=== PATIENT | male | born 1975 | race Caucasian/White ===

== ENCOUNTER 2020-10-01 16:45 | Emergency (ER) | payer OTHER ==
[2020-10-01 16:55] VITALS: BP 143/79; PULSE 89
[2020-10-01 17:18] LABS: CHLORIDE,CL 98 mEq/L (98-106); SODIUM,NA 133 mEq/L (136-145)
[2020-10-01] MEDS ORDERED: Codeine/Promethazine 10-6.25 MG/5 ML Syrup 5 ML UD Cup PO PRN (17:49)
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
[2020-10-01] MEDS ORDERED: Magnesium Chloride 64 MG Tab.ER PO STA (17:52)
[2020-10-01] MEDS ORDERED: Potassium Chloride 10 MEQ Tab.ER PO ONE (17:52)
== END 2020-10-01 18:14 | disposition home or self-care (01) ==
LOC: CC.ED 16:45
DX: U07.1 COVID-19 (principal); K21.9 Gastro-esophageal reflux disease without esophagitis; F41.9 Anxiety disorder, unspecified; F32.9 Major depressive disorder, single episode, unspecified; E11.9 Type 2 diabetes mellitus without complications; E03.9 Hypothyroidism, unspecified; E66.9 Obesity, unspecified; Z68.41 Body mass index [BMI] 40.0-44.9, adult; Z79.899 Other long term (current) drug therapy
CPT/HCPCS: 36415; 71046; 80053; 83605; 83735; 85025; 85379; 86140; 99284; 99285; A9270

== ENCOUNTER 2020-10-03 19:45 | Inpatient (IN) | payer OTHER ==
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
[2020-10-03 20:26] LABS: CHLORIDE,CL 95 mEq/L (98-106); SODIUM,NA 130 mEq/L (136-145)
[2020-10-03 20:37] LABS: PTT,PARTIAL THROMBOPLSTIN TIME 27.9 SEC (23.2-32.3)
[2020-10-03] MEDS ORDERED: Ondansetron 4 MG Tab.DIS PO PRN (21:27)
[2020-10-03] MEDS ORDERED: NS + KCl 20mEq/L 1,000 ML IV SCH (21:27)
[2020-10-03] MEDS ORDERED: Sodium Chloride 0.9% 10 ML Syringe FLUSH PRN (21:27)
[2020-10-03] MEDS ORDERED: REMDESIVIR 200 MG in Sodium Chloride 0.9% 250 ML IV ONE (21:27)
[2020-10-03] MEDS ORDERED: Ondansetron 4 MG/2 ML SDV IV PRN (21:27)
[2020-10-03] MEDS: metFORMIN 500 MG Tab PO SCH (22:48)
[2020-10-03] MEDS: Dexamethasone 4 MG Tab PO SCH (22:48)
[2020-10-03] MEDS: Enoxaparin 40 MG/0.4 ML Syringe SUBCUT SCH (22:48)
[2020-10-03] MEDS: busPIRone 5 MG Tab PO SCH (22:49)
[2020-10-04] MEDS ORDERED: Cholecalciferol (Vitamin D3) 25 MCG Tab PO SCH (08:00)
[2020-10-04] MEDS: busPIRone 5 MG Tab PO SCH ×2 (08:42→19:41)
[2020-10-04] MEDS: Zinc Sulfate 220 MG Cap PO SCH (08:43)
[2020-10-04] MEDS: metFORMIN 500 MG Tab PO SCH ×2 (08:43→19:42)
[2020-10-04] MEDS: Dexamethasone 4 MG Tab PO SCH (08:43)
[2020-10-04] MEDS: Pantoprazole 40 MG Tab.CR PO SCH (08:43)
[2020-10-04] MEDS: Levothyroxine 112 MCG Tab PO SCH (08:43)
[2020-10-04] MEDS: Gabapentin 100 MG Cap PO SCH ×3 (08:44→15:31)
[2020-10-04] MEDS: Ascorbic Acid 500 MG Tab PO SCH ×2 (08:44→19:42)
[2020-10-04] MEDS: VARENICLINE 1 MG PO SCH ×2 (08:44→19:42)
--- NOTE | 2020-10-04 10:21 | PCM.PN ---
- General Info Date of Service: 10/04/20 Admission Dx/Problem (Free Text): COvid Pneumonitis with Hypoxia Subjective Update: Sharif is a 45 yo male who was admitted to the hospital from the ED yesterday with bilateral covid pneumonitis with hypoxia. He reports he gets very easily winded. Was attempting to shower at time of rounds and reports he struggled with that. Has no stamina. Has continued dry cough. Reports chest pain while coughing. Has had some diarrhea. O2 sats have been maintaining with 3L via NC. No other complaints. Functional Status: Reports: Pain Controlled, Tolerating Diet - Review of Systems General: Reports: Weakness, Fatigue, Malaise. Denies: Fever HEENT: Reports: No Symptoms Pulmonary: Reports: Shortness of Breath, Pleuritic Chest Pain, Cough Cardiovascular: Reports: Dyspnea on Exertion. Denies: Edema Gastrointestinal: Reports: Decreased Appetite, Diarrhea. Denies: Abdominal Pain Genitourinary: Reports: No Symptoms Musculoskeletal: Reports: No Symptoms Skin: Reports: No Symptoms Neurological: Reports: No Symptoms Psychiatric: Reports: Anxiety - Patient Data Vitals - Most Recent: Last Vital Signs Temp 98.4 F 10/04/20 08:00 Pulse 79 10/04/20 08:00 Resp 18 10/04/20 08:00 BP 133/70 10/04/20 08:00 Pulse Ox 96 10/04/20 08:55 Weight - Most Recent: 319 lb 6.4 oz Lab Results Last 24 Hours: Laboratory Results - last 24 hr 10/03/20 10/03/20 10/03/20 Range/Units 20:00 20:00 20:00 WBC 6.1 (5.0-10.0) 10^3/uL RBC 4.83 (4.50-6.00) 10^6/uL Hgb 14.7 (14.0-18.0) g/dL Hct 42.8 (40.0-54.0) % MCV 88.6 (82.0-94.0) fL MCH 30.4 (27.0-32.0) pg MCHC 34.3 (33.0-38.0) g/dL RDW Coeff of Anupama 12.2 (11.0-15.0) % Plt Count 203 (150-400) 10^3/uL Neut % (Auto) 65.7 (35-85) % Lymph % (Auto) 25.5 (10-55) % [place] % (Auto) 8.4 (0-16) % Eos % (Auto) 0.2 (0-5) % Baso % (Auto) 0.2 (0-3) % Neut # (Auto) 3.99 (1.80-7.00) 10^3/uL Lymph # (Auto) 1.55 (1.00-4.80) 10^3/uL [place] # (Auto) 0.51 (0.00-0.80) 10^3/uL Eos # (Auto) 0.01 (0.00-0.45) 10^3/uL Baso # (Auto) 0.01 10^3/uL PT 9.8 (9.7-12.3) SEC INR 0.97 (0.92-1.18) APTT 27.9 (23.2-32.3) SEC D-Dimer, Quantitative 1.29 H (0.00-0.50) Sodium 130 L (136-145) mEq/L Potassium 3.7 (3.5-5.0) mEq/L Chloride 95 L (98-106) mEq/L Carbon Dioxide 21 (21-32) mmol/L BUN 15 (7-18) mg/dL Creatinine 1.3 (0.7-1.3) mg/dL Est Cr Clr Drug Dosing 80.24 mL/min Estimated GFR (MDRD) 59 L (>=60) mL/min Glucose 226 H D (75-99) mg/dL Calcium 8.6 (8.4-10.1) mg/dL Magnesium 1.7 L (1.8-2.4) mg/dL Total Bilirubin 0.4 (0.0-1.0) mg/dL AST 47 H (15-37) U/L ALT 48 (12-78) U/L Alkaline Phosphatase 67 (46-116) U/L Troponin I < 0.017 (0.00-0.06) ng/mL C-Reactive Protein 20.5 H (0.2-0.8) mg/dL Total Protein 8.2 (6.4-8.2) g/dL Albumin 3.4 (3.4-5.0) g/dL 1110/04/20 10/04/20 Range/Units 07:10 07:10 07:10 WBC 6.0 (5.0-10.0) 10^3/uL RBC 4.64 (4.50-6.00) 10^6/uL Hgb 13.9 L (14.0-18.0) g/dL Hct 41.9 (40.0-54.0) % MCV 90.3 (82.0-94.0) fL MCH 30.0 (27.0-32.0) pg MCHC 33.2 (33.0-38.0) g/dL RDW Coeff of Anupama 12.3 (11.0-15.0) % Plt Count 191 (150-400) 10^3/uL Neut % (Auto) 78.6 (35-85) % Lymph % (Auto) 14.2 (10-55) % [place] % (Auto) 7.0 (0-16) % Eos % (Auto) 0 (0-5) % Baso % (Auto) 0.2 (0-3) % Neut # (Auto) 4.70 (1.80-7.00) 10^3/uL Lymph # (Auto) 0.85 L (1.00-4.80) 10^3/uL [place] # (Auto) 0.42 (0.00-0.80) 10^3/uL Eos # (Auto) 0.00 (0.00-0.45) 10^3/uL Baso # (Auto) 0.01 10^3/uL PT (9.7-12.3) SEC INR (0.92-1.18) APTT (23.2-32.3) SEC D-Dimer, Quantitative 1.08 H (0.00-0.50) Sodium 133 L (136-145) mEq/L Potassium 4.4 (3.5-5.0) mEq/L Chloride 97 L (98-106) mEq/L Carbon Dioxide 25 (21-32) mmol/L BUN 17 (7-18) mg/dL Creatinine 1.4 H (0.7-1.3) mg/dL Est Cr Clr Drug Dosing 74.51 mL/min Estimated GFR (MDRD) 55 L (>=60) mL/min Glucose 345 H* D (75-99) mg/dL Calcium 8.5 (8.4-10.1) mg/dL Magnesium (1.8-2.4) mg/dL Total Bilirubin 0.3 (0.0-1.0) mg/dL AST 43 H (15-37) U/L ALT 45 (12-78) U/L Alkaline Phosphatase 62 (46-116) U/L Troponin I (0.00-0.06) ng/mL C-Reactive Protein 18.4 H (0.2-0.8) mg/dL Total Protein 8.1 (6.4-8.2) g/dL Albumin 3.2 L (3.4-5.0) g/dL Med Orders - Current: Current Medications Acetaminophen (Tylenol) 650 mg PO Q4H PRN PRN Reason: Pain (Mild 1-3)/fever Ascorbic Acid (Vitamin C) 500 mg PO BID [facility] Last Admin: 10/04/20 08:44 Dose: 500 mg Documented by: Buspirone HCl (Buspar) 40 mg PO BID [facility] Last Admin: 10/04/20 08:42 Dose: 40 mg Documented by: Cholecalciferol (Vitamin D3) 50 mcg PO BEDTIME [facility] Dexamethasone (Dexamethasone) 6 mg PO DAILY [facility] Last Admin: 10/04/20 08:43 Dose: 6 mg Documented by: Enoxaparin Sodium (Lovenox) 40 mg SUBCUT Q24H [facility] Last Admin: 10/03/20 22:48 Dose: 40 mg Documented by: Gabapentin (Neurontin) 200 mg PO 0800,1200,1600 [facility] Last Admin: 10/04/20 08:44 Dose: 200 mg Documented by: Gabapentin (Neurontin) 300 mg PO BEDTIME [facility] Potassium Chloride/Sodium Chloride (Normal Saline With 20 Meq Kcl) 1,000 mls @ 75 mls/hr IV ASDIRECTED [facility] Stop: 10/04/20 10:46 Last Admin: 10/03/20 23:57 Dose: 75 mls/hr Documented by: Ibuprofen (Motrin) 400 mg PO Q6H PRN PRN Reason: Pain (mild 1-3) Levothyroxine Sodium (Levothyroxine) 224 mcg PO DAILY [facility] Last Admin: 10/04/20 08:43 Dose: 224 mcg Documented by: Metformin HCl (Glucophage) 1,000 mg PO BID [facility] Last Admin: 10/04/20 08:43 Dose: 1,000 mg Documented by: Varenicline 1 Mg (Own Med) 0 mg PO BID [facility] Last Admin: 10/04/20 08:44 Dose: 1 mg Documented by: Ondansetron HCl (Zofran Odt) 4 mg PO Q4H PRN PRN Reason: nausea, able to take PO Ondansetron HCl (Zofran) 4 mg IV Q4H PRN PRN Reason: Nausea/Vomiting Pantoprazole Sodium (Protonix) 40 mg PO DAILY [facility] Last Admin: 10/04/20 08:43 Dose: 40 mg Documented by: Sodium Chloride (Saline Flush) 10 ml FLUSH ASDIRECTED PRN PRN Reason: Keep Vein Open Tizanidine HCl (Zanaflex) 8 mg PO BEDTIME [facility] Trazodone HCl (Trazodone) 300 mg PO BEDTIME [facility] Zinc Sulfate (Zincate) 220 mg PO DAILY [facility] Last Admin: 10/04/20 08:43 Dose: 220 mg Documented by: Discontinued Medications Cholecalciferol (Vitamin D3) 25 mcg PO DAILY [facility] Remdesivir 200 mg/ Sodium (Chloride) 250 mls @ 250 mls/hr IV ONETIME ONE Stop: 10/03/20 21:28 Last Admin: 10/03/20 22:47 Dose: 250 mls/hr Documented by: - Exam Quality Assessment: Supplemental Oxygen, DVT Prophylaxis General: Alert, Oriented, Mild Distress HEENT: Pupils Equal, Pupils Reactive, EOMI, Mucous Membr. Moist/[place] Neck: Supple Lungs: Decreased Breath Sounds, Rhonchi (RUL) Cardiovascular: Regular Rate, Regular Rhythm GI/Abdominal Exam: Normal Bowel Sounds, Soft, Non-Tender, No Organomegaly, No Distention, No Abnormal Bruit, No Mass, Pelvis Stable Extremities: Normal Inspection, Normal Range of Motion, Non-Tender, No Pedal Edema, Normal Capillary Refill Neurological: No New Focal Deficit Psy/Mental Status: Anxious Sepsis Event Note - Evaluation Sepsis Screening Result: No Definite Risk - Focused Exam Vital Signs: Vital Signs Temp Pulse Resp BP Pulse Ox 10/04/20 08:55 96 10/04/20 08:00 98.4 F 79 18 133/70 97 10/04/20 04:00 97.3 F 68 16 130/80 99 10/04/20 00:00 98.0 F 83 16 128/57 L 98 10/03/20 22:30 98.2 F - Problem List & Annotations (1) COVID-19 SNOMED Code(s): 555148740 Code(s): U07.1 - COVID-19 Status: Acute Priority: High Current Visit: Yes (2) Acute respiratory distress SNOMED Code(s): 221208043 Code(s): R06.03 - ACUTE RESPIRATORY DISTRESS Status: Acute Priority: High Current Visit: Yes (3) Hypoxemia SNOMED Code(s): 596168214 Code(s): R09.02 - HYPOXEMIA Status: Acute Priority: High Current Visit: Yes - Problem List Review Problem List Initiated/Reviewed/Updated: Yes - Assessment Assessment:: Covid 19 Acute respiratory distress Hypoxemia - Plan Plan:: Continues to require 3 L O2. Do feel we may be able to wean him down as his O2 sats have been > 96%. Blood sugars have been elevated, suspect from steroids. Will start SSI QID. Continue with Remdesevir, dexamethasone, Lovenox, zinc, vitamin C, and vitamin D. Attempt to wean O2. If patient's O2 needs reduce, may be ready for discharge tomorrow. Recheck labs in am
[2020-10-04] MEDS ORDERED: 50% Dextrose in Water 50 ML Syringe IV PRN (11:30)
[2020-10-04] MEDS ORDERED: Glucagon,Human Recombinant 1 MG Vial IM PRN (11:30)
[2020-10-04] MEDS: Insulin Lispro 100 Units/ML 3 ML Vial SUBCUT SCH ×3 (12:11→21:12)
[2020-10-04] MEDS ORDERED: LORazepam 0.5 MG Tab PO PRN (15:12)
[2020-10-04] MEDS: traZODone 50 MG Tab PO SCH (19:41)
[2020-10-04] MEDS: REMDESIVIR 100 MG in Sodium Chloride 0.9% 100 ML IV SCH (19:41)
[2020-10-04] MEDS: Gabapentin 300 MG Cap PO SCH (19:42)
[2020-10-04] MEDS: tiZANidine 4 MG Tab PO SCH (19:42)
[2020-10-04] MEDS: Cholecalciferol (Vitamin D3) 25 MCG Tab PO SCH (19:42)
[2020-10-04] MEDS: Ibuprofen 200 MG Tab PO PRN (19:58)
[2020-10-04] MEDS: Enoxaparin 40 MG/0.4 ML Syringe SUBCUT SCH (21:07)
[2020-10-05] MEDS: Ibuprofen 200 MG Tab PO PRN (06:15)
[2020-10-05] MEDS: Dexamethasone 4 MG Tab PO SCH (07:44)
[2020-10-05] MEDS: busPIRone 5 MG Tab PO SCH ×2 (07:44→19:45)
[2020-10-05] MEDS: metFORMIN 500 MG Tab PO SCH ×2 (07:44→19:43)
[2020-10-05] MEDS: Levothyroxine 112 MCG Tab PO SCH (07:45)
[2020-10-05] MEDS: Ascorbic Acid 500 MG Tab PO SCH ×2 (07:45→19:47)
[2020-10-05] MEDS: Zinc Sulfate 220 MG Cap PO SCH (07:45)
[2020-10-05] MEDS: Gabapentin 100 MG Cap PO SCH ×3 (07:45→15:47)
[2020-10-05] MEDS: Pantoprazole 40 MG Tab.CR PO SCH (07:45)
[2020-10-05] MEDS: Insulin Lispro 100 Units/ML 3 ML Vial SUBCUT SCH ×4 (07:45→20:58)
[2020-10-05 07:46] LABS: CHLORIDE,CL 101 mEq/L (98-106); SODIUM,NA 135 mEq/L (136-145)
[2020-10-05] MEDS: VARENICLINE 1 MG PO SCH ×2 (07:46→19:49)
[2020-10-05] MEDS: Acetaminophen 325 MG Tab PO PRN ×2 (09:47→19:49)
--- NOTE | 2020-10-05 11:10 | PCM.PN ---
- General Info Date of Service: 10/05/20 Admission Dx/Problem (Free Text): COvid Pneumonitis with Hypoxia Functional Status: Reports: Pain Controlled, Tolerating Diet, Ambulating - Review of Systems General: Reports: Fever, Weakness, Fatigue, Malaise, Chills HEENT: Reports: Sinus Congestion, Other (bloody nose this am). Denies: Sore Throat Pulmonary: Reports: Shortness of Breath, Cough, Wheezing Cardiovascular: Denies: Chest Pain, Edema, Lightheadedness Gastrointestinal: Reports: Nausea, Vomiting. Denies: Abdominal Pain Genitourinary: Reports: No Symptoms Musculoskeletal: Reports: No Symptoms Skin: Reports: No Symptoms Neurological: Reports: Headache, Weakness - Patient Data Vitals - Most Recent: Last Vital Signs Temp 101.4 F H 10/05/20 09:48 Pulse 76 10/05/20 07:50 Resp 18 10/05/20 07:50 BP 128/68 10/05/20 07:50 Pulse Ox 94 L 10/05/20 07:50 Weight - Most Recent: 319 lb 6.4 oz Lab Results Last 24 Hours: Laboratory Results - last 24 hr 10/05/20 10/05/20 10/05/20 Range/Units 07:05 07:05 07:05 WBC 8.7 (5.0-10.0) 10^3/uL RBC 4.29 L (4.50-6.00) 10^6/uL Hgb 13.2 L (14.0-18.0) g/dL Hct 38.5 L (40.0-54.0) % MCV 89.7 (82.0-94.0) fL MCH 30.8 (27.0-32.0) pg MCHC 34.3 (33.0-38.0) g/dL RDW Coeff of Anupama 12.0 (11.0-15.0) % Plt Count 211 (150-400) 10^3/uL Neut % (Auto) 69.4 (35-85) % Lymph % (Auto) 26.0 (10-55) % [place] % (Auto) 4.5 (0-16) % Eos % (Auto) 0.1 (0-5) % Baso % (Auto) 0 (0-3) % Neut # (Auto) 6.01 (1.80-7.00) 10^3/uL Lymph # (Auto) 2.25 (1.00-4.80) 10^3/uL [place] # (Auto) 0.39 (0.00-0.80) 10^3/uL Eos # (Auto) 0.01 (0.00-0.45) 10^3/uL Baso # (Auto) 0.00 10^3/uL D-Dimer, Quantitative 1.59 H (0.00-0.50) Sodium 135 L (136-145) mEq/L Potassium 3.7 (3.5-5.0) mEq/L Chloride 101 (98-106) mEq/L Carbon Dioxide 25 (21-32) mmol/L BUN 23 H (7-18) mg/dL Creatinine 1.1 (0.7-1.3) mg/dL Est Cr Clr Drug Dosing 94.83 mL/min Estimated GFR (MDRD) > 60 (>=60) mL/min Glucose 212 H D (75-99) mg/dL Calcium 8.2 L (8.4-10.1) mg/dL Total Bilirubin 0.3 (0.0-1.0) mg/dL AST 33 (15-37) U/L ALT 35 (12-78) U/L Alkaline Phosphatase 54 (46-116) U/L C-Reactive Protein 13.1 H (0.2-0.8) mg/dL Total Protein 7.2 (6.4-8.2) g/dL Albumin 2.9 L (3.4-5.0) g/dL Med Orders - Current: Current Medications Acetaminophen (Tylenol) 650 mg PO Q4H PRN PRN Reason: Pain (Mild 1-3)/fever Last Admin: 10/05/20 09:47 Dose: 650 mg Documented by: Ascorbic Acid (Vitamin C) 500 mg PO BID [facility] Last Admin: 10/05/20 07:45 Dose: 500 mg Documented by: Buspirone HCl (Buspar) 40 mg PO BID [facility] Last Admin: 10/05/20 07:44 Dose: 40 mg Documented by: Cholecalciferol (Vitamin D3) 50 mcg PO BEDTIME [facility] Last Admin: 10/04/20 19:42 Dose: 50 mcg Documented by: Dexamethasone (Dexamethasone) 6 mg PO DAILY [facility] Last Admin: 10/05/20 07:44 Dose: 6 mg Documented by: Dextrose/Water (Dextrose 50% In Water) 50 ml IV ASDIRECTED PRN PRN Reason: Hypoglycemia Enoxaparin Sodium (Lovenox) 40 mg SUBCUT Q24H [facility] Last Admin: 10/04/20 21:07 Dose: 40 mg Documented by: Gabapentin (Neurontin) 200 mg PO 0800,1200,1600 [facility] Last Admin: 10/05/20 07:45 Dose: 200 mg Documented by: Gabapentin (Neurontin) 300 mg PO BEDTIME [facility] Last Admin: 10/04/20 19:42 Dose: 300 mg Documented by: Glucagon (Glucagen) 1 mg IM ASDIRECTED PRN PRN Reason: Hypoglycemia Remdesivir 100 mg/ Sodium (Chloride) 100 mls @ 100 mls/hr IV Q24H [facility] Stop: 10/07/20 20:59 Last Admin: 10/04/20 19:41 Dose: 100 mls/hr Documented by: Ibuprofen (Motrin) 400 mg PO Q6H PRN PRN Reason: Pain (mild 1-3) Last Admin: 10/05/20 06:15 Dose: 400 mg Documented by: Insulin Human Lispro (Humalog) 0 unit SUBCUT WITHMEALSANDBED [facility]; Protocol Last Admin: 10/05/20 07:45 Dose: 4 units Documented by: Levothyroxine Sodium (Levothyroxine) 224 mcg PO DAILY [facility] Last Admin: 10/05/20 07:45 Dose: 224 mcg Documented by: Lorazepam (Ativan) 0.5 mg PO Q8H PRN PRN Reason: Anxiety Metformin HCl (Glucophage) 1,000 mg PO BID [facility] Last Admin: 10/05/20 07:44 Dose: 1,000 mg Documented by: Varenicline 1 Mg (Own Med) 0 mg PO BID [facility] Last Admin: 10/05/20 07:46 Dose: 1 mg Documented by: Ondansetron HCl (Zofran Odt) 4 mg PO Q4H PRN PRN Reason: nausea, able to take PO Ondansetron HCl (Zofran) 4 mg IV Q4H PRN PRN Reason: Nausea/Vomiting Pantoprazole Sodium (Protonix) 40 mg PO DAILY [facility] Last Admin: 10/05/20 07:45 Dose: 40 mg Documented by: Sodium Chloride (Saline Flush) 10 ml FLUSH ASDIRECTED PRN PRN Reason: Keep Vein Open Tizanidine HCl (Zanaflex) 8 mg PO BEDTIME [facility] Last Admin: 10/04/20 19:42 Dose: 8 mg Documented by: Trazodone HCl (Trazodone) 300 mg PO BEDTIME [facility] Last Admin: 10/04/20 19:41 Dose: 300 mg Documented by: Zinc Sulfate (Zincate) 220 mg PO DAILY [facility] Last Admin: 10/05/20 07:45 Dose: 220 mg Documented by: Discontinued Medications Cholecalciferol (Vitamin D3) 25 mcg PO DAILY [facility] Remdesivir 200 mg/ Sodium (Chloride) 250 mls @ 250 mls/hr IV ONETIME ONE Stop: 10/03/20 21:28 Last Admin: 10/03/20 22:47 Dose: 250 mls/hr Documented by: Potassium Chloride/Sodium Chloride (Normal Saline With 20 Meq Kcl) 1,000 mls @ 75 mls/hr IV ASDIRECTED [facility] Stop: 10/04/20 10:46 Last Admin: 10/03/20 23:57 Dose: 75 mls/hr Documented by: - Exam General: Alert, Oriented HEENT: Mucous Membr. Moist/[place] Neck: Supple Lungs: Decreased Breath Sounds, Wheezing Cardiovascular: Regular Rate, Regular Rhythm GI/Abdominal Exam: Normal Bowel Sounds, Soft, Non-Tender Extremities: Normal Inspection, No Pedal Edema Skin: Warm, Dry Neurological: No New Focal Deficit Sepsis Event Note - Evaluation Sepsis Screening Result: No Definite Risk - Focused Exam Vital Signs: Vital Signs Temp Temp Pulse Resp BP Pulse Ox 10/05/20 09:48 101.4 F H 10/05/20 07:50 100.1 F 76 18 128/68 94 L 10/05/20 07:15 100.1 F 10/05/20 06:15 101.9 F H 101.9 F H 10/05/20 03:30 98.3 F 78 16 129/63 92 L 10/05/20 00:00 97.2 F 66 16 120/60 98 - Problem List & Annotations (1) COVID-19 SNOMED Code(s): 673537758 Code(s): U07.1 - COVID-19 Status: Acute Priority: High Current Visit: Yes (2) Acute respiratory distress SNOMED Code(s): 764610630 Code(s): R06.03 - ACUTE RESPIRATORY DISTRESS Status: Acute Priority: High Current Visit: Yes (3) Hypoxemia SNOMED Code(s): 642792797 Code(s): R09.02 - HYPOXEMIA Status: Acute Priority: High Current Visit: Yes - Problem List Review Problem List Initiated/Reviewed/Updated: Yes - My Orders Last 24 Hours: My Active Orders 10/04/20 20:00 Cholecalciferol (Vitamin D3) [Vitamin D3] 50 mcg PO BEDTIME Gabapentin [Neurontin] 300 mg PO BEDTIME tiZANidine [Zanaflex] 8 mg PO BEDTIME traZODone 300 mg PO BEDTIME 10/06/20 05:11 C-REACTIVE PROTEIN [CHEM] DAILY CBC WITH AUTO DIFF [HEME] DAILY COMPREHENSIVE METABOLIC PN,CMP [CHEM] DAILY D-DIMER QUANTITATIVE [COAG] DAILY - Assessment Assessment:: Covid 19 Acute respiratory distress Hypoxemia - Plan Plan:: Continues to require 3 L O2. Do feel we may be able to wean him down as his O2 sats have been > 96%. Blood sugars have been elevated, suspect from steroids. Will start SSI QID. Continue with Remdesevir, dexamethasone, Lovenox, zinc, vitamin C, and vitamin D. Attempt to wean O2. If patient's O2 needs reduce, may be ready for discharge tomorrow. Recheck labs in am 10-05-2020 patient feeling more tough this am, fever of 101.9. Had bloody nose this am and large emesis but feels less nauseated now. Does "feel hungry". Is weaned oxygen now. Does admit that feels "closed in and anxious here but now not feeling good enough yet to go home". WBC is stable at 8.7. Hemoglobin 13.2. D-dimer is mildly elevated today at 1.59. CRP has improved to 13.1. Will continue with Remdesivir and dexamethasone. Sliding scale insulin as blood sugars elevated, likely due to steroids. Possible discharge home tomorrow.
[2020-10-05] MEDS: Codeine/Promethazine 10-6.25 MG/5 ML Syrup 5 ML UD Cup PO PRN ×2 (14:32→20:58)
[2020-10-05] MEDS: tiZANidine 4 MG Tab PO SCH (19:44)
[2020-10-05] MEDS: Gabapentin 300 MG Cap PO SCH (19:47)
[2020-10-05] MEDS: Cholecalciferol (Vitamin D3) 25 MCG Tab PO SCH (19:47)
[2020-10-05] MEDS: traZODone 50 MG Tab PO SCH (19:48)
[2020-10-05] MEDS: REMDESIVIR 100 MG in Sodium Chloride 0.9% 100 ML IV SCH (19:50)
[2020-10-05] MEDS: Enoxaparin 40 MG/0.4 ML Syringe SUBCUT SCH (20:58)
[2020-10-06] MEDS: Ibuprofen 200 MG Tab PO PRN (05:20)
[2020-10-06] MEDS: busPIRone 5 MG Tab PO SCH ×2 (07:36→21:10)
[2020-10-06] MEDS: Gabapentin 100 MG Cap PO SCH ×3 (07:36→16:04)
[2020-10-06] MEDS: Zinc Sulfate 220 MG Cap PO SCH (07:36)
[2020-10-06] MEDS: Ascorbic Acid 500 MG Tab PO SCH ×2 (07:36→21:14)
[2020-10-06] MEDS: Levothyroxine 112 MCG Tab PO SCH (07:36)
[2020-10-06] MEDS: metFORMIN 500 MG Tab PO SCH (07:37)
[2020-10-06] MEDS: Acetaminophen 325 MG Tab PO PRN ×2 (07:37→21:44)
[2020-10-06] MEDS: Pantoprazole 40 MG Tab.CR PO SCH (07:37)
[2020-10-06] MEDS: Dexamethasone 4 MG Tab PO SCH (07:37)
[2020-10-06] MEDS: Insulin Lispro 100 Units/ML 3 ML Vial SUBCUT SCH ×4 (07:41→21:18)
[2020-10-06] MEDS: VARENICLINE 1 MG PO SCH ×2 (07:41→21:18)
[2020-10-06 07:51] LABS: CHLORIDE,CL 99 mEq/L (98-106); SODIUM,NA 135 mEq/L (136-145)
[2020-10-06] MEDS ORDERED: Albuterol 8 GM Inhaler INH PRN ×2 (10:36→10:46)
[2020-10-06] MEDS ORDERED: Sodium Chloride 0.9% 500 ML IV ONE (11:30)
[2020-10-06 11:39] LABS: O2 DELIVERY DEVICE ROOM AIR
[2020-10-06 11:44] LABS: BICARBONATE,ARTERIAL 19.6 mm/L (22.0-26.0); O2 SATURATION ARTERIAL 93 % (95-98); PCO2 ARTERIAL 31 mm/Hg0 (35-45); PO2 ARTERIAL 66 mm/Hg (80-100)
[2020-10-06] MEDS ORDERED: Iopamidol 755 Mg/ML 100 ML Bottle IVPUSH ONE (12:16)
--- NOTE | 2020-10-06 12:46 | PCM.PN ---
- General Info Date of Service: 10/07/20 Functional Status: Reports: Pain Controlled, Tolerating Diet, Ambulating (in the rooom), Urinating - Review of Systems General: Reports: Fatigue, Malaise HEENT: Reports: No Symptoms Pulmonary: Reports: Shortness of Breath, Cough. Denies: Sputum Cardiovascular: Reports: No Symptoms Gastrointestinal: Reports: No Symptoms Genitourinary: Reports: No Symptoms Musculoskeletal: Reports: No Symptoms Skin: Reports: No Symptoms Neurological: Reports: No Symptoms Psychiatric: Reports: No Symptoms - Patient Data Vitals - Most Recent: Last Vital Signs Temp 100.5 F 10/06/20 07:37 Pulse 79 10/06/20 07:37 Resp 18 10/06/20 07:37 BP 126/71 10/06/20 07:37 Pulse Ox 94 L 10/06/20 07:37 Weight - Most Recent: 319 lb 6.4 oz Lab Results Last 24 Hours: Laboratory Results - last 24 hr 10/06/20 10/06/20 10/06/20 Range/Units 07:22 07:22 07:22 WBC 10.1 H (5.0-10.0) 10^3/uL RBC 4.33 L (4.50-6.00) 10^6/uL Hgb 13.2 L (14.0-18.0) g/dL Hct 39.1 L (40.0-54.0) % MCV 90.3 (82.0-94.0) fL MCH 30.5 (27.0-32.0) pg MCHC 33.8 (33.0-38.0) g/dL RDW Coeff of Anupama 12.1 (11.0-15.0) % Plt Count 227 (150-400) 10^3/uL Neut % (Auto) 71.8 (35-85) % Lymph % (Auto) 23.0 (10-55) % [place] % (Auto) 5.1 (0-16) % Eos % (Auto) 0 (0-5) % Baso % (Auto) 0.1 (0-3) % Neut # (Auto) 7.28 H (1.80-7.00) 10^3/uL Lymph # (Auto) 2.33 (1.00-4.80) 10^3/uL [place] # (Auto) 0.52 (0.00-0.80) 10^3/uL Eos # (Auto) 0.00 (0.00-0.45) 10^3/uL Baso # (Auto) 0.01 10^3/uL D-Dimer, Quantitative 2.57 H (0.00-0.50) ABG pH (7.35-7.45) ABG pCO2 (35-45) mm/Hg0 ABG pO2 (80-100) mm/Hg ABG HCO3 (22.0-26.0) mm/L ABG O2 Saturation (95-98) % ABG Base Excess (-2.0-3.0) O2 Delivery Device Sodium 135 L (136-145) mEq/L Potassium 3.3 L (3.5-5.0) mEq/L Chloride 99 (98-106) mEq/L Carbon Dioxide 24 (21-32) mmol/L BUN 18 (7-18) mg/dL Creatinine 1.2 (0.7-1.3) mg/dL Est Cr Clr Drug Dosing 86.93 mL/min Estimated GFR (MDRD) > 60 (>=60) mL/min Glucose 244 H (75-99) mg/dL Calcium 8.1 L (8.4-10.1) mg/dL Total Bilirubin 0.5 (0.0-1.0) mg/dL AST 35 (15-37) U/L ALT 32 (12-78) U/L Alkaline Phosphatase 59 (46-116) U/L C-Reactive Protein 15.1 H (0.2-0.8) mg/dL Total Protein 7.2 (6.4-8.2) g/dL Albumin 2.8 L (3.4-5.0) g/dL 10/06/20 Range/Units 11:36 WBC (5.0-10.0) 10^3/uL RBC (4.50-6.00) 10^6/uL Hgb (14.0-18.0) g/dL Hct (40.0-54.0) % MCV (82.0-94.0) fL MCH (27.0-32.0) pg MCHC (33.0-38.0) g/dL RDW Coeff of Anupama (11.0-15.0) % Plt Count (150-400) 10^3/uL Neut % (Auto) (35-85) % Lymph % (Auto) (10-55) % [place] % (Auto) (0-16) % Eos % (Auto) (0-5) % Baso % (Auto) (0-3) % Neut # (Auto) (1.80-7.00) 10^3/uL Lymph # (Auto) (1.00-4.80) 10^3/uL [place] # (Auto) (0.00-0.80) 10^3/uL Eos # (Auto) (0.00-0.45) 10^3/uL Baso # (Auto) 10^3/uL D-Dimer, Quantitative (0.00-0.50) ABG pH 7.41 (7.35-7.45) ABG pCO2 31 L (35-45) mm/Hg0 ABG pO2 66 L (80-100) mm/Hg ABG HCO3 19.6 L (22.0-26.0) mm/L ABG O2 Saturation 93 L (95-98) % ABG Base Excess -5.0 L (-2.0-3.0) O2 Delivery Device Room air Sodium (136-145) mEq/L Potassium (3.5-5.0) mEq/L Chloride (98-106) mEq/L Carbon Dioxide (21-32) mmol/L BUN (7-18) mg/dL Creatinine (0.7-1.3) mg/dL Est Cr Clr Drug Dosing mL/min Estimated GFR (MDRD) (>=60) mL/min Glucose (75-99) mg/dL Calcium (8.4-10.1) mg/dL Total Bilirubin (0.0-1.0) mg/dL AST (15-37) U/L ALT (12-78) U/L Alkaline Phosphatase (46-116) U/L C-Reactive Protein (0.2-0.8) mg/dL Total Protein (6.4-8.2) g/dL Albumin (3.4-5.0) g/dL Med Orders - Current: Current Medications Acetaminophen (Tylenol) 650 mg PO Q4H PRN PRN Reason: Pain (Mild 1-3)/fever Last Admin: 10/06/20 07:37 Dose: 650 mg Documented by: Albuterol (Ventolin Hfa) 0 gm INH Q4H PRN PRN Reason: Dyspnea Ascorbic Acid (Vitamin C) 500 mg PO BID [facility] Last Admin: 10/06/20 07:36 Dose: 500 mg Documented by: Buspirone HCl (Buspar) 40 mg PO BID [facility] Last Admin: 10/06/20 07:36 Dose: 40 mg Documented by: Cholecalciferol (Vitamin D3) 50 mcg PO BEDTIME [facility] Last Admin: 10/05/20 19:47 Dose: 50 mcg Documented by: Dexamethasone (Dexamethasone) 6 mg PO DAILY [facility] Last Admin: 10/06/20 07:37 Dose: 6 mg Documented by: Dextrose/Water (Dextrose 50% In Water) 50 ml IV ASDIRECTED PRN PRN Reason: Hypoglycemia Enoxaparin Sodium (Lovenox) 40 mg SUBCUT Q24H [facility] Last Admin: 10/05/20 20:58 Dose: 40 mg Documented by: Gabapentin (Neurontin) 200 mg PO 0800,1200,1600 [facility] Last Admin: 10/06/20 12:02 Dose: 200 mg Documented by: Gabapentin (Neurontin) 300 mg PO BEDTIME [facility] Last Admin: 10/05/20 19:47 Dose: 300 mg Documented by: Glucagon (Glucagen) 1 mg IM ASDIRECTED PRN PRN Reason: Hypoglycemia Remdesivir 100 mg/ Sodium (Chloride) 100 mls @ 100 mls/hr IV Q24H [facility] Stop: 10/07/20 20:59 Last Admin: 10/05/20 19:50 Dose: 100 mls/hr Documented by: Ibuprofen (Motrin) 400 mg PO Q6H PRN PRN Reason: Pain (mild 1-3) Last Admin: 10/06/20 05:20 Dose: 400 mg Documented by: Insulin Human Lispro (Humalog) 0 unit SUBCUT WITHMEALSANDBED [facility]; Protocol Last Admin: 10/06/20 12:02 Dose: 8 units Documented by: Levothyroxine Sodium (Levothyroxine) 224 mcg PO DAILY [facility] Last Admin: 10/06/20 07:36 Dose: 224 mcg Documented by: Lorazepam (Ativan) 0.5 mg PO Q8H PRN PRN Reason: Anxiety Last Admin: 10/05/20 21:08 Dose: 0.5 mg Documented by: Metformin HCl (Glucophage) 1,000 mg PO BID [facility] Last Admin: 10/06/20 07:37 Dose: 1,000 mg Documented by: Varenicline 1 Mg (Own Med) 0 mg PO BID [facility] Last Admin: 10/06/20 07:41 Dose: 1 mg Documented by: Ondansetron HCl (Zofran Odt) 4 mg PO Q4H PRN PRN Reason: nausea, able to take PO Ondansetron HCl (Zofran) 4 mg IV Q4H PRN PRN Reason: Nausea/Vomiting Pantoprazole Sodium (Protonix) 40 mg PO DAILY [facility] Last Admin: 10/06/20 07:37 Dose: 40 mg Documented by: Promethazine HCl/Codeine (Phenergan With Codeine) 5 ml PO Q6H PRN PRN Reason: Cough Last Admin: 10/05/20 20:58 Dose: 5 ml Documented by: Sodium Chloride (Saline Flush) 10 ml FLUSH ASDIRECTED PRN PRN Reason: Keep Vein Open Tizanidine HCl (Zanaflex) 8 mg PO BEDTIME [facility] Last Admin: 10/05/20 19:44 Dose: 8 mg Documented by: Trazodone HCl (Trazodone) 300 mg PO BEDTIME [facility] Last Admin: 10/05/20 19:48 Dose: 300 mg Documented by: Zinc Sulfate (Zincate) 220 mg PO DAILY [facility] Last Admin: 10/06/20 07:36 Dose: 220 mg Documented by: Discontinued Medications Albuterol (Ventolin Hfa) 1 gm INH Q4H PRN PRN Reason: Dyspnea Cholecalciferol (Vitamin D3) 25 mcg PO DAILY [facility] Remdesivir 200 mg/ Sodium (Chloride) 250 mls @ 250 mls/hr IV ONETIME ONE Stop: 10/03/20 21:28 Last Admin: 10/03/20 22:47 Dose: 250 mls/hr Documented by: Potassium Chloride/Sodium Chloride (Normal Saline With 20 Meq Kcl) 1,000 mls @ 75 mls/hr IV ASDIRECTED [facility] Stop: 10/04/20 10:46 Last Admin: 10/03/20 23:57 Dose: 75 mls/hr Documented by: Sodium Chloride (Normal Saline) 500 mls @ 500 mls/hr IV .BOLUS ONE Stop: 10/06/20 12:29 Last Admin: 10/06/20 12:02 Dose: 500 mls/hr Documented by: Iopamidol (Isovue-370 (76%)) 100 ml IVPUSH ONETIME ONE Stop: 10/06/20 12:17 - Exam Quality Assessment: Supplemental Oxygen (2L NC. ) General: Alert, Oriented Neck: Supple, Trachea Midline, No JVD Lungs: Normal Respiratory Effort, Rhonchi (mildly throughout) Cardiovascular: Regular Rate, Regular Rhythm GI/Abdominal Exam: Soft, Non-Tender Back Exam: Normal Inspection, Full Range of Motion Extremities: Normal Inspection, Normal Range of Motion, Non-Tender, No Pedal Edema, Normal Capillary Refill Peripheral Pulses: 2+: Radial (L), Radial (R), Posterior Tibial (L), Posterior Tibial (R) Skin: Warm, Dry, Intact Neurological: No New Focal Deficit Psy/Mental Status: Alert, Normal Affect, Normal Mood Sepsis Event Note - Evaluation Sepsis Screening Result: No Definite Risk - Focused Exam Vital Signs: Vital Signs Temp Temp Pulse Resp BP Pulse Ox 10/06/20 07:37 100.5 F 79 18 126/71 94 L 10/06/20 07:00 100 10/06/20 06:42 101.7 F H 20 95 10/06/20 06:20 101.7 F H 10/06/20 05:23 94 L 10/06/20 05:20 102.3 F H 10/06/20 05:08 102.3 F H 91 28 H 127/55 L 87 L - Problem List Review Problem List Initiated/Reviewed/Updated: Yes - My Orders Last 24 Hours: My Active Orders 10/06/20 10:36 RT Post Treatment Assessment [RC] Click to Edit RT Pre-Treatment Assessment [RC] Click to Edit 10/06/20 10:46 Albuterol [Ventolin HFA] 0 gm INH Q4H PRN 10/06/20 11:22 Ang Chest [CT] Stat - Assessment Assessment:: Covid 19 Acute respiratory distress Hypoxemia - Plan Plan:: Continues to require 3 L O2. Do feel we may be able to wean him down as his O2 sats have been > 96%. Blood sugars have been elevated, suspect from steroids. Will start SSI QID. Continue with Remdesevir, dexamethasone, Lovenox, zinc, vitamin C, and vitamin D. Attempt to wean O2. If patient's O2 needs reduce, may be ready for discharge tomorrow. Recheck labs in am 10-05-2020 patient feeling more tough this am, fever of 101.9. Had bloody nose this am and large emesis but feels less nauseated now. Does "feel hungry". Is weaned oxygen now. Does admit that feels "closed in and anxious here but now not feeling good enough yet to go home". WBC is stable at 8.7. Hemoglobin 13.2. D-dimer is mildly elevated today at 1.59. CRP has improved to 13.1. Will continue with Remdesivir and dexamethasone. Sliding scale insulin as blood sugars elevated, likely due to steroids. Possible discharge home tomorrow. 10/06/2020 1100am Patient reports that he is not feeling great today. Patient reports shortness of breath, he has requested oxygen, the RN placed oxygen on patient. The patient overnight oxygen saturation was 89%, placed oxygen then. However, patient wears CPAP at home bedtime, does not have here. Today, I asked RN to remove the oxygen even at patient quest to have it. His RA oxygen saturation is 94%, ABG RA is 93%. He does not appear in any acute distress. He has been up ambulating his room. I told by RN patient had a panic attack last night. Patient has hx of PTSD. Today patient wbc is 101, CRP 15.1 His D-dimer today is near 2.5. With patient shortness of breath, COVID, and elevated of d-dimer, will ct his chest if he can tolerate. Plan, if CT shows no PE, can discharge tomorrow as long as hold oxygen saturation during the day.
[2020-10-06] MEDS: traZODone 50 MG Tab PO SCH (21:06)
[2020-10-06] MEDS: tiZANidine 4 MG Tab PO SCH (21:12)
[2020-10-06] MEDS: Gabapentin 300 MG Cap PO SCH (21:13)
[2020-10-06] MEDS: Cholecalciferol (Vitamin D3) 25 MCG Tab PO SCH (21:14)
[2020-10-06] MEDS: REMDESIVIR 100 MG in Sodium Chloride 0.9% 100 ML IV SCH (21:15)
[2020-10-06] MEDS: Enoxaparin 40 MG/0.4 ML Syringe SUBCUT SCH (21:22)
[2020-10-06] MEDS: Codeine/Promethazine 10-6.25 MG/5 ML Syrup 5 ML UD Cup PO PRN (21:23)
[2020-10-07] MEDS: Pantoprazole 40 MG Tab.CR PO SCH (07:26)
[2020-10-07] MEDS: Levothyroxine 112 MCG Tab PO SCH (07:26)
[2020-10-07] MEDS: Dexamethasone 4 MG Tab PO SCH (07:26)
[2020-10-07] MEDS: Gabapentin 100 MG Cap PO SCH ×3 (07:26→16:50)
[2020-10-07] MEDS: busPIRone 5 MG Tab PO SCH ×2 (07:26→20:02)
[2020-10-07] MEDS: Ascorbic Acid 500 MG Tab PO SCH ×2 (07:26→20:05)
[2020-10-07] MEDS: Zinc Sulfate 220 MG Cap PO SCH (07:27)
[2020-10-07] MEDS: VARENICLINE 1 MG PO SCH ×2 (07:27→20:06)
[2020-10-07] MEDS: Insulin Lispro 100 Units/ML 3 ML Vial SUBCUT SCH ×4 (07:36→20:23)
--- NOTE | 2020-10-07 11:54 | PCM.PN ---
- General Info Date of Service: 10/07/20 Functional Status: Reports: Pain Controlled, Tolerating Diet, Ambulating, Urinating - Review of Systems General: Reports: Fever, Weakness, Fatigue, Malaise HEENT: Reports: Post Nasal Drip, Sinus Congestion Pulmonary: Reports: Shortness of Breath, Cough, Sputum, Hemoptysis, Wheezing Cardiovascular: Reports: No Symptoms Gastrointestinal: Reports: No Symptoms Genitourinary: Reports: No Symptoms Musculoskeletal: Reports: No Symptoms Skin: Reports: No Symptoms Neurological: Reports: No Symptoms Psychiatric: Reports: No Symptoms - Patient Data Vitals - Most Recent: Last Vital Signs Temp 99.2 F 10/07/20 07:30 Pulse 67 10/07/20 07:30 Resp 18 10/07/20 07:30 BP 129/71 10/07/20 07:30 Pulse Ox 94 L 10/07/20 07:51 Weight - Most Recent: 319 lb 6.4 oz Lab Results Last 24 Hours: Laboratory Results - last 24 hr 10/06/20 Range/Units 11:36 ABG pH 7.41 (7.35-7.45) ABG pCO2 31 L (35-45) mm/Hg0 ABG pO2 66 L (80-100) mm/Hg ABG HCO3 19.6 L (22.0-26.0) mm/L ABG O2 Saturation 93 L (95-98) % ABG Base Excess -5.0 L (-2.0-3.0) O2 Delivery Device Room air Med Orders - Current: Current Medications Acetaminophen (Tylenol) 650 mg PO Q4H PRN PRN Reason: Pain (Mild 1-3)/fever Last Admin: 10/06/20 21:44 Dose: 650 mg Documented by: Albuterol (Ventolin Hfa) 0 gm INH Q4H PRN PRN Reason: Dyspnea Last Admin: 10/06/20 21:23 Dose: 1 puff Documented by: Ascorbic Acid (Vitamin C) 500 mg PO BID [facility] Last Admin: 10/07/20 07:26 Dose: 500 mg Documented by: Buspirone HCl (Buspar) 40 mg PO BID [facility] Last Admin: 10/07/20 07:26 Dose: 40 mg Documented by: Cholecalciferol (Vitamin D3) 50 mcg PO BEDTIME [facility] Last Admin: 10/06/20 21:14 Dose: 50 mcg Documented by: Dexamethasone (Dexamethasone) 6 mg PO DAILY [facility] Last Admin: 10/07/20 07:26 Dose: 6 mg Documented by: Dextrose/Water (Dextrose 50% In Water) 50 ml IV ASDIRECTED PRN PRN Reason: Hypoglycemia Enoxaparin Sodium (Lovenox) 40 mg SUBCUT Q24H [facility] Last Admin: 10/06/20 21:22 Dose: 40 mg Documented by: Gabapentin (Neurontin) 200 mg PO 0800,1200,1600 [facility] Last Admin: 10/07/20 07:26 Dose: 200 mg Documented by: Gabapentin (Neurontin) 300 mg PO BEDTIME [facility] Last Admin: 10/06/20 21:13 Dose: 300 mg Documented by: Glucagon (Glucagen) 1 mg IM ASDIRECTED PRN PRN Reason: Hypoglycemia Remdesivir 100 mg/ Sodium (Chloride) 100 mls @ 100 mls/hr IV Q24H [facility] Stop: 10/07/20 20:59 Last Admin: 10/06/20 21:15 Dose: 100 mls/hr Documented by: Ibuprofen (Motrin) 400 mg PO Q6H PRN PRN Reason: Pain (mild 1-3) Last Admin: 10/06/20 05:20 Dose: 400 mg Documented by: Insulin Human Lispro (Humalog) 0 unit SUBCUT WITHMEALSANDBED [facility]; Protocol Last Admin: 10/07/20 07:36 Dose: 8 units Documented by: Levothyroxine Sodium (Levothyroxine) 224 mcg PO DAILY [facility] Last Admin: 10/07/20 07:26 Dose: 224 mcg Documented by: Lorazepam (Ativan) 0.5 mg PO Q8H PRN PRN Reason: Anxiety Last Admin: 10/05/20 21:08 Dose: 0.5 mg Documented by: Metformin HCl (Glucophage) 1,000 mg PO BID [facility] Last Admin: 10/06/20 07:37 Dose: 1,000 mg Documented by: Varenicline 1 Mg (Own Med) 0 mg PO BID [facility] Last Admin: 10/07/20 07:27 Dose: 1 mg Documented by: Ondansetron HCl (Zofran Odt) 4 mg PO Q4H PRN PRN Reason: nausea, able to take PO Ondansetron HCl (Zofran) 4 mg IV Q4H PRN PRN Reason: Nausea/Vomiting Pantoprazole Sodium (Protonix) 40 mg PO DAILY [facility] Last Admin: 10/07/20 07:26 Dose: 40 mg Documented by: Promethazine HCl/Codeine (Phenergan With Codeine) 5 ml PO Q6H PRN PRN Reason: Cough Last Admin: 10/06/20 21:23 Dose: 5 ml Documented by: Sodium Chloride (Saline Flush) 10 ml FLUSH ASDIRECTED PRN PRN Reason: Keep Vein Open Tizanidine HCl (Zanaflex) 8 mg PO BEDTIME [facility] Last Admin: 10/06/20 21:12 Dose: 8 mg Documented by: Trazodone HCl (Trazodone) 300 mg PO BEDTIME [facility] Last Admin: 10/06/20 21:06 Dose: 300 mg Documented by: Zinc Sulfate (Zincate) 220 mg PO DAILY [facility] Last Admin: 10/07/20 07:27 Dose: 220 mg Documented by: Discontinued Medications Albuterol (Ventolin Hfa) 1 gm INH Q4H PRN PRN Reason: Dyspnea Cholecalciferol (Vitamin D3) 25 mcg PO DAILY [facility] Remdesivir 200 mg/ Sodium (Chloride) 250 mls @ 250 mls/hr IV ONETIME ONE Stop: 10/03/20 21:28 Last Admin: 10/03/20 22:47 Dose: 250 mls/hr Documented by: Potassium Chloride/Sodium Chloride (Normal Saline With 20 Meq Kcl) 1,000 mls @ 75 mls/hr IV ASDIRECTED [facility] Stop: 10/04/20 10:46 Last Admin: 10/03/20 23:57 Dose: 75 mls/hr Documented by: Sodium Chloride (Normal Saline) 500 mls @ 500 mls/hr IV .BOLUS ONE Stop: 10/06/20 12:29 Last Admin: 10/06/20 13:30 Dose: 500 mls/hr Documented by: Iopamidol (Isovue-370 (76%)) 100 ml IVPUSH ONETIME ONE Stop: 10/06/20 12:17 Last Admin: 10/06/20 13:37 Dose: 100 ml Documented by: - Exam Quality Assessment: Supplemental Oxygen (2L NC) General: Alert, Oriented, Cooperative, No Acute Distress Neck: Supple, Trachea Midline, No JVD Lungs: Decreased Breath Sounds (moderate throughout), Rhonchi Cardiovascular: Regular Rate, Regular Rhythm GI/Abdominal Exam: Soft, Non-Tender Back Exam: Normal Inspection Extremities: Normal Inspection, No Pedal Edema Peripheral Pulses: 2+: Radial (L), Radial (R), Posterior Tibial (L), Posterior Tibial (R) Skin: Warm, Dry, Intact Psy/Mental Status: Alert, Normal Affect, Normal Mood Sepsis Event Note - Evaluation Sepsis Screening Result: No Definite Risk - Focused Exam Vital Signs: Vital Signs Temp Pulse Resp BP Pulse Ox 10/07/20 07:51 94 L 10/07/20 07:40 94 L 10/07/20 07:30 99.2 F 67 18 129/71 96 10/07/20 03:44 98.7 F 67 22 H 147/68 H 86 L - Problem List Review Problem List Initiated/Reviewed/Updated: Yes - My Orders Last 24 Hours: My Active Orders 10/06/20 10:46 Albuterol [Ventolin HFA] 0 gm INH Q4H PRN 10/06/20 11:22 Ang Chest [CT] Stat - Assessment Assessment:: Covid 19 Acute respiratory distress Hypoxemia - Plan Plan:: Continues to require 3 L O2. Do feel we may be able to wean him down as his O2 sats have been > 96%. Blood sugars have been elevated, suspect from steroids. Will start SSI QID. Continue with Remdesevir, dexamethasone, Lovenox, zinc, vitamin C, and vitamin D. Attempt to wean O2. If patient's O2 needs reduce, may be ready for discharge tomorrow. Recheck labs in am 10-05-2020 patient feeling more tough this am, fever of 101.9. Had bloody nose this am and large emesis but feels less nauseated now. Does "feel hungry". Is weaned oxygen now. Does admit that feels "closed in and anxious here but now not feeling good enough yet to go home". WBC is stable at 8.7. Hemoglobin 13.2. D-dimer is mildly elevated today at 1.59. CRP has improved to 13.1. Will continue with Remdesivir and dexamethasone. Sliding scale insulin as blood sugars elevated, likely due to steroids. Possible discharge home tomorrow. 10/06/2020 1100am Patient reports that he is not feeling great today. Patient reports shortness of breath, he has requested oxygen, the RN placed oxygen on patient. The patient overnight oxygen saturation was 89%, placed oxygen then. However, patient wears CPAP at home bedtime, does not have here. Today, I asked RN to remove the oxygen even at patient quest to have it. His RA oxygen saturation is 94%, ABG RA is 93%. He does not appear in any acute distress. He has been up ambulating his room. I told by RN patient had a panic attack last night. Patient has hx of PTSD. Today patient wbc is 101, CRP 15.1 His D-dimer today is near 2.5. With patient shortness of breath, COVID, and elevated of d-dimer, will ct his chest if he can tolerate. Plan, if CT shows no PE, can discharge tomorrow as long as hold oxygen saturation during the day. 10/07/2020 10:20am This patient currently at this time is 94% on 2L NC. The patient early this morning had a coughing spell per RN, then was increased shortness of breath, oxygen saturation in the 70s, had to placed on 5L NC for several minutes before rebounding to 90%. The patient today reports that he continues to feel not so great. Patient reports that he continues to feel short of breath and keeps having coughing spells. Patient angio of chest was done yesterday and was negative for PEs and focal infiltrates. Ct showed COVID pneumonia. Patient labs are unremarkable. Due to patient continued episodes of hypoxia, I will keep the patient acute. He will get his Remdesivir tonight, his last dose. The plan will be to discharge tomorrow on home oxygen and nebs. I would like to give this patient neb tx, but due to patient PTSD his room was not able to be converted a negative pressure to allow this. Currently no negative pressure rooms available. I do not believe there is much more medical tx that can be done in the hospital that at this time can not be done at home, including nebs and home O2. Will evaluate tomorrow.
[2020-10-07] MEDS: Gabapentin 300 MG Cap PO SCH (20:03)
[2020-10-07] MEDS: traZODone 50 MG Tab PO SCH (20:04)
[2020-10-07] MEDS: tiZANidine 4 MG Tab PO SCH (20:05)
[2020-10-07] MEDS: Cholecalciferol (Vitamin D3) 25 MCG Tab PO SCH (20:05)
[2020-10-07] MEDS: REMDESIVIR 100 MG in Sodium Chloride 0.9% 100 ML IV SCH (20:07)
[2020-10-07] MEDS: Acetaminophen 325 MG Tab PO PRN (20:31)
[2020-10-07] MEDS: Enoxaparin 40 MG/0.4 ML Syringe SUBCUT SCH (20:32)
[2020-10-08] MEDS: Ibuprofen 200 MG Tab PO PRN (03:19)
[2020-10-08] MEDS: Levothyroxine 112 MCG Tab PO SCH (07:31)
[2020-10-08] MEDS: Dexamethasone 4 MG Tab PO SCH (07:32)
[2020-10-08] MEDS: Ascorbic Acid 500 MG Tab PO SCH (07:32)
[2020-10-08] MEDS: Gabapentin 100 MG Cap PO SCH ×2 (07:32→11:33)
[2020-10-08] MEDS: Zinc Sulfate 220 MG Cap PO SCH (07:33)
[2020-10-08] MEDS: Pantoprazole 40 MG Tab.CR PO SCH (07:33)
[2020-10-08] MEDS: VARENICLINE 1 MG PO SCH (07:33)
[2020-10-08] MEDS: busPIRone 5 MG Tab PO SCH (07:34)
[2020-10-08] MEDS: Insulin Lispro 100 Units/ML 3 ML Vial SUBCUT SCH ×2 (07:41→11:38)
[2020-10-08] MEDS: Acetaminophen 325 MG Tab PO PRN (07:41)
--- NOTE | 2020-10-08 07:52 | PCM.DCSUM1 ---
Discharge Summary - Hospital Course HPI Initial Comments: This 45 year old male patient admitted with COVID and hypoxia. Patient labs are unremarkable. Patient has been requiring oxygen of 2-3L NC at night with sleeping with oxygen saturations of 90%. During the day the patient has been 94% on RA, 95-96% on 2L NC. Patient has known sleep apnea with CPAP machine at home that he does not have here. The patient reports the oxygen makes him feel more comfortable. I attempted to order duonebs on this patient, but due to his ptsd, he would not allow staff to convert room to covid negative air pressure room. I believe he would benefit from duonebs. Patient also the last two days had gone outside the hospital and met up with family outside. He has done this without oxygen. Even when educated not to meet up with family, has done so per chief of staff. Patient got his last dose of Remdisivir last night. There is nothing more in the hospital that I am doing for him, other than oxygen and steroids. Which he can do both at home. I discussed this with him, he agrees and wants to go home. He reports he can be more active at home and he thinks he will get better being home instead of here in the hospital room. I will discharge the patient home with oxygen. RN will teach and educate patient how to use and when to use it. She will teach him how to use the pulse ox and its relation to oxygen use. He is in no distress. Currently at oxygen need testing his oxygen was 88% RA at rest. Oxygen at 3L NC at 94%. - Discharge Data Discharge Date: 10/08/20 Discharge Disposition: Home, Self-Care 01 Condition: Fair - Referral to Home Health Primary Care Physician: PCP None - Patient Instructions Activity: As Tolerated Driving: May Drive Today Showering/Bathing: May Shower Notify Provider of: Fever, Nausea and/or Vomiting Other/Special Instructions: Followup with primary care provider this week. Return to the ER for increased shortness of breath or unable to keep oxygen above 92%. Oxygen take home: Education given. Dexamethasone take as directed - Discharge Plan *PRESCRIPTION DRUG MONITORING PROGRAM REVIEWED*: No *COPY OF PRESCRIPTION DRUG MONITORING REPORT IN PATIENT AFTAB: No Prescriptions/Med Rec: dexAMETHasone [Dexamethasone] 6 mg PO DAILY #6 tablet Albuterol/Ipratropium [DuoNeb 3.0-0.5 MG/3 ML] 3 ml .XX Q4HR PRN #60 neb PRN Reason: Dyspnea Nebulizer and Compressor [Easy Neb Compressor Nebulizer] 1 each MC Q4HR PRN #1 each PRN Reason: Dyspnea Albuterol [Ventolin HFA] 2 puff INH Q4H PRN #1 inhaler PRN Reason: Dyspnea Home Medications: Home Meds Ascorbic Acid [Vitamin C] 500 mg PO BEDTIME 10/03/20 [History] Cholecalciferol (Vitamin D3) [Vitamin D3] 2,000 unit PO BEDTIME 10/03/20 [History] Gabapentin [Neurontin] 200 mg PO TID 10/03/20 [History] Gabapentin [Neurontin] 300 mg PO BEDTIME 10/03/20 [History] Levothyroxine Sodium [Synthroid] 224 mcg PO DAILY 10/03/20 [History] Pantoprazole Sodium [Protonix] 40 mg PO DAILY 10/03/20 [History] Varenicline Tartrate [Chantix] 1 mg PO BID 10/03/20 [History] busPIRone [Buspar] 40 mg PO BID 10/03/20 [History] metFORMIN HCl [Metformin HCl] 1,000 mg PO BID 10/03/20 [History] tiZANidine HCl [Tizanidine HCl] 8 mg PO BEDTIME 10/03/20 [History] traZODone HCl [Trazodone HCl] 300 mg PO BEDTIME 10/03/20 [History] Albuterol [Ventolin HFA] 2 puff INH Q4H PRN #1 inhaler 10/08/20 [Rx] Albuterol/Ipratropium [DuoNeb 3.0-0.5 MG/3 ML] 3 ml .XX Q4HR PRN #60 neb 10/08/20 [Rx] Ascorbic Acid [Vitamin C] 500 mg PO BID #0 tablet 10/08/20 [Rx] Nebulizer and Compressor [Easy Neb Compressor Nebulizer] 1 each MC Q4HR PRN #1 each 10/08/20 [Rx] Zinc Sulfate [Zincate] 220 mg PO DAILY #0 cap 10/08/20 [Rx] dexAMETHasone [Dexamethasone] 6 mg PO DAILY #6 tablet 10/08/20 [Rx] Oxygen Therapy Mode: Nasal Cannula Oxygen Flow Rate (L/min): 2 Maintain SPO2% less than: 99 Maintain SpO2% greater than: 93 Patient Handouts: COVID-19 Frequently Asked Questions, Hypoxemia, COVID-19: How to Protect Yourself and Others - CDC, Prevent the Spread of COVID-19 if You Are Sick - [facility] Forms: ED Department Discharge Referrals: PCP,None [Primary Care Provider] - - Discharge Summary/Plan Comment DC Time >30 min.: No - General Info Date of Service: 10/08/20 Functional Status: Reports: Pain Controlled, Tolerating Diet, Ambulating, Urinating - Review of Systems General: Reports: Fatigue HEENT: Reports: No Symptoms Pulmonary: Reports: Shortness of Breath, Cough, Sputum, Hemoptysis Cardiovascular: Reports: No Symptoms. Denies: Palpitations, Edema, Lightheadedness Gastrointestinal: Reports: No Symptoms Genitourinary: Reports: No Symptoms Musculoskeletal: Reports: No Symptoms Skin: Reports: No Symptoms Neurological: Reports: No Symptoms Psychiatric: Reports: No Symptoms - Patient Data Vitals - Most Recent: Last Vital Signs Temp 99.4 F 10/08/20 03:24 Pulse 65 10/08/20 03:24 Resp 22 H 10/08/20 03:24 BP 135/71 10/08/20 03:24 Pulse Ox 92 L 10/08/20 03:24 Weight - Most Recent: 319 lb 6.4 oz Med Orders - Current: Current Medications Acetaminophen (Tylenol) 650 mg PO Q4H PRN PRN Reason: Pain (Mild 1-3)/fever Last Admin: 10/08/20 07:41 Dose: 650 mg Documented by: Albuterol (Ventolin Hfa) 0 gm INH Q4H PRN PRN Reason: Dyspnea Last Admin: 10/06/20 21:23 Dose: 1 puff Documented by: Ascorbic Acid (Vitamin C) 500 mg PO BID [facility] Last Admin: 10/08/20 07:32 Dose: 500 mg Documented by: Buspirone HCl (Buspar) 40 mg PO BID [facility] Last Admin: 10/08/20 07:34 Dose: 40 mg Documented by: Cholecalciferol (Vitamin D3) 50 mcg PO BEDTIME [facility] Last Admin: 10/07/20 20:05 Dose: 50 mcg Documented by: Dexamethasone (Dexamethasone) 6 mg PO DAILY [facility] Last Admin: 11/23/20 07:32 Dose: 6 mg Documented by: Dextrose/Water (Dextrose 50% In Water) 50 ml IV ASDIRECTED PRN PRN Reason: Hypoglycemia Enoxaparin Sodium (Lovenox) 40 mg SUBCUT Q24H [facility] Last Admin: 10/07/20 20:32 Dose: 40 mg Documented by: Gabapentin (Neurontin) 200 mg PO 0800,1200,1600 [facility] Last Admin: 10/08/20 07:32 Dose: 200 mg Documented by: Gabapentin (Neurontin) 300 mg PO BEDTIME [facility] Last Admin: 10/07/20 20:03 Dose: 300 mg Documented by: Glucagon (Glucagen) 1 mg IM ASDIRECTED PRN PRN Reason: Hypoglycemia Ibuprofen (Motrin) 400 mg PO Q6H PRN PRN Reason: Pain (mild 1-3) Last Admin: 10/08/20 03:19 Dose: 400 mg Documented by: Insulin Human Lispro (Humalog) 0 unit SUBCUT WITHMEALSANDBED [facility]; Protocol Last Admin: 10/08/20 07:41 Dose: 9 units Documented by: Levothyroxine Sodium (Levothyroxine) 224 mcg PO DAILY [facility] Last Admin: 10/08/20 07:31 Dose: 224 mcg Documented by: Lorazepam (Ativan) 0.5 mg PO Q8H PRN PRN Reason: Anxiety Last Admin: 10/05/20 21:08 Dose: 0.5 mg Documented by: Metformin HCl (Glucophage) 1,000 mg PO BID [facility] Last Admin: 10/06/20 07:37 Dose: 1,000 mg Documented by: Varenicline 1 Mg (Own Med) 0 mg PO BID [facility] Last Admin: 10/08/20 07:33 Dose: 1 mg Documented by: Ondansetron HCl (Zofran Odt) 4 mg PO Q4H PRN PRN Reason: nausea, able to take PO Ondansetron HCl (Zofran) 4 mg IV Q4H PRN PRN Reason: Nausea/Vomiting Pantoprazole Sodium (Protonix) 40 mg PO DAILY [facility] Last Admin: 10/08/20 07:33 Dose: 40 mg Documented by: Promethazine HCl/Codeine (Phenergan With Codeine) 5 ml PO Q6H PRN PRN Reason: Cough Last Admin: 10/06/20 21:23 Dose: 5 ml Documented by: Sodium Chloride (Saline Flush) 10 ml FLUSH ASDIRECTED PRN PRN Reason: Keep Vein Open Tizanidine HCl (Zanaflex) 8 mg PO BEDTIME [facility] Last Admin: 10/07/20 20:05 Dose: 8 mg Documented by: Trazodone HCl (Trazodone) 300 mg PO BEDTIME [facility] Last Admin: 10/07/20 20:04 Dose: 300 mg Documented by: Zinc Sulfate (Zincate) 220 mg PO DAILY [facility] Last Admin: 10/08/20 07:33 Dose: 220 mg Documented by: Discontinued Medications Albuterol (Ventolin Hfa) 1 gm INH Q4H PRN PRN Reason: Dyspnea Cholecalciferol (Vitamin D3) 25 mcg PO DAILY [facility] Remdesivir 200 mg/ Sodium (Chloride) 250 mls @ 250 mls/hr IV ONETIME ONE Stop: 10/03/20 21:28 Last Admin: 10/03/20 22:47 Dose: 250 mls/hr Documented by: Potassium Chloride/Sodium Chloride (Normal Saline With 20 Meq Kcl) 1,000 mls @ 75 mls/hr IV ASDIRECTED [facility] Stop: 10/04/20 10:46 Last Admin: 10/03/20 23:57 Dose: 75 mls/hr Documented by: Remdesivir 100 mg/ Sodium (Chloride) 100 mls @ 100 mls/hr IV Q24H [facility] Stop: 10/07/20 20:59 Last Admin: 10/07/20 20:07 Dose: 100 mls/hr Documented by: Sodium Chloride (Normal Saline) 500 mls @ 500 mls/hr IV .BOLUS ONE Stop: 10/06/20 12:29 Last Admin: 10/06/20 13:30 Dose: 500 mls/hr Documented by: Iopamidol (Isovue-370 (76%)) 100 ml IVPUSH ONETIME ONE Stop: 10/06/20 12:17 Last Admin: 10/06/20 13:37 Dose: 100 ml Documented by: - Exam Quality Assessment: Reports: Supplemental Oxygen (2L NC) General: Reports: Alert, Oriented, Cooperative Neck: Reports: Supple, Trachea Midline Lungs: Reports: Decreased Breath Sounds, Rhonchi (throughout) Cardiovascular: Reports: Regular Rate, Regular Rhythm GI/Abdominal Exam: Soft, Non-Tender Back Exam: Reports: Normal Inspection Extremities: Normal Inspection, Normal Range of Motion, Non-Tender, No Pedal Edema, Normal Capillary Refill Skin: Reports: Warm, Dry, Intact Neurological: Reports: No New Focal Deficit Psy/Mental Status: Reports: Alert, Normal Affect, Normal Mood
[2020-10-08 11:42] VITALS: BP 138/77; PULSE 71
== END 2020-10-08 15:48 | disposition home or self-care (01) | DRG 177 ==
LOC: CC.ED 19:45 → CC.MS 21:02 → UNDOADMIN 21:02 → CC.MS 21:12
PROVIDERS: ADMIT Physician Assistant Medical; ATTEND Family Medicine
PROC: XW033E5 Introduction of Remdesivir Anti-infective into Peripheral Vein, Percutaneous Approach, New Technology Group 5 (ICD-10-PCS; principal; 2020-10-03)
DX: U07.1 COVID-19 (principal); R06.03 Acute respiratory distress; R09.02 Hypoxemia; J12.9 Viral pneumonia, unspecified; Z68.41 Body mass index [BMI] 40.0-44.9, adult; G47.30 Sleep apnea, unspecified; K21.9 Gastro-esophageal reflux disease without esophagitis; G47.33 Obstructive sleep apnea (adult) (pediatric); F43.10 Post-traumatic stress disorder, unspecified; H91.90 Unspecified hearing loss, unspecified ear; M54.9 Dorsalgia, unspecified; M19.90 Unspecified osteoarthritis, unspecified site; F41.9 Anxiety disorder, unspecified; Z79.84 Long term (current) use of oral hypoglycemic drugs; F32.9 Major depressive disorder, single episode, unspecified; G89.4 Chronic pain syndrome; E11.9 Type 2 diabetes mellitus without complications; H54.7 Unspecified visual loss; E03.9 Hypothyroidism, unspecified; E66.9 Obesity, unspecified; Z99.81 Dependence on supplemental oxygen; Z79.890 Hormone replacement therapy; Z79.899 Other long term (current) drug therapy
CPT/HCPCS: 36415; 36600; 71046; 71275; 80053; 82803; 83735; 84484; 85025; 85379; 85610; 85730; 86140; 93005; 93010; 94640; 99285-25; A9270-GY; J1650; J1815-GY; J3480; J7040; J7050; J8540; Q9967

== ENCOUNTER 2021-08-06 11:48 | Emergency (ER) | payer OTHER ==
[2021-08-06 12:10] VITALS: BP 125/69; PULSE 74
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
== END 2021-08-06 12:48 | disposition home or self-care (01) ==
LOC: CC.ED 11:48
DX: M25.571 Pain in right ankle and joints of right foot (principal); K21.9 Gastro-esophageal reflux disease without esophagitis; E11.9 Type 2 diabetes mellitus without complications; E66.9 Obesity, unspecified; E03.9 Hypothyroidism, unspecified; Z86.16 Personal history of COVID-19; Z79.84 Long term (current) use of oral hypoglycemic drugs; Z79.899 Other long term (current) drug therapy; Z72.0 Tobacco use
CPT/HCPCS: 73610-RT; 99283-25

== ENCOUNTER 2022-02-22 13:42 | Emergency (ER) | payer OTHER ==
[2022-02-22 13:45] VITALS: BP 120/77; PULSE 95
[2022-02-22 14:26] LABS: CHLORIDE,CL 102 mEq/L (98-106); SODIUM,NA 140 mEq/L (136-145)
[2022-02-22] MEDS ORDERED: Iopamidol 755 Mg/ML 100 ML Bottle IVPUSH ONE (14:39)
[2022-02-22] MEDS ORDERED: Take Home: Amoxicillin/Clavulanate K 875-125 MG Tab, 2 Tab Pack PO ONE (16:25)
== END 2022-02-22 16:36 | disposition home or self-care (01) ==
LOC: CC.ED 13:42
DX: T81.49XA Infection following a procedure, other surgical site, initial encounter (principal); M25.571 Pain in right ankle and joints of right foot; E11.9 Type 2 diabetes mellitus without complications; F41.9 Anxiety disorder, unspecified; F32.A Depression, unspecified; E03.9 Hypothyroidism, unspecified; E66.9 Obesity, unspecified; Z68.39 Body mass index [BMI] 39.0-39.9, adult; Z79.899 Other long term (current) drug therapy
CPT/HCPCS: 36415; 73701-RT; 80053; 85025; 86140; 99284; 99284-25; A9270-GY; Q9967

== ENCOUNTER 2022-09-02 11:09 | Emergency (ER) | payer OTHER ==
[2022-09-02 11:21] VITALS: BP 122/79; PULSE 62
[2022-09-02] MEDS ORDERED: Diphtheria,Pertussis(Acell),Tetanus Vaccine 0.5 ML Syringe IM ONE (11:28)
[2022-09-02] MEDS ORDERED: Lidocaine 1% 5 ML VIAL INJECT ONE (11:28)
[2022-09-02] MEDS ORDERED: Bacitracin/Neomycin/Polymyxin B Oint 0.9 GM U/D Packet TOP ONE (12:22)
== END 2022-09-02 12:48 | disposition home or self-care (01) ==
LOC: CC.ED 11:09
DX: S61.213A Laceration without foreign body of left middle finger without damage to nail, initial encounter (principal); E11.9 Type 2 diabetes mellitus without complications; E66.9 Obesity, unspecified; Z68.38 Body mass index [BMI] 38.0-38.9, adult; Z23 Encounter for immunization; Z79.899 Other long term (current) drug therapy; Z79.84 Long term (current) use of oral hypoglycemic drugs; Z86.16 Personal history of COVID-19; W26.8XXA Contact with other sharp object(s), not elsewhere classified, initial encounter; Y92.69 Other specified industrial and construction area as the place of occurrence of the external cause
CPT/HCPCS: 12002; 73140-F2; 90471; 90715; 99283; 99283-25

== ENCOUNTER 2022-09-25 12:10 | Emergency (ER) | payer OTHER ==
[2022-09-25 12:34] VITALS: BP 116/45; PULSE 61
== END 2022-09-25 14:11 | disposition home or self-care (01) ==
LOC: CC.ED 12:10
DX: M25.462 Effusion, left knee (principal); E11.9 Type 2 diabetes mellitus without complications; E66.9 Obesity, unspecified; Z68.38 Body mass index [BMI] 38.0-38.9, adult; Z79.899 Other long term (current) drug therapy; Z79.84 Long term (current) use of oral hypoglycemic drugs; X50.1XXA Overexertion from prolonged static or awkward postures, initial encounter
CPT/HCPCS: 73564-LT; 99283

== ENCOUNTER 2023-11-05 09:55 | Emergency (ER) | payer OTHER ==
[2023-11-05 10:30] VITALS: BP 132/75; PULSE 85
== END 2023-11-05 11:10 | disposition home or self-care (01) ==
LOC: CC.ED 09:55
DX: J10.1 Influenza due to other identified influenza virus with other respiratory manifestations (principal); K21.9 Gastro-esophageal reflux disease without esophagitis; E11.9 Type 2 diabetes mellitus without complications; Z86.16 Personal history of COVID-19; Z20.822 Contact with and (suspected) exposure to COVID-19; Z79.84 Long term (current) use of oral hypoglycemic drugs; Z79.899 Other long term (current) drug therapy
CPT/HCPCS: 87804; 99283; 99284; U0002

== ENCOUNTER 2024-01-05 17:52 | Emergency (ER) | payer OTHER ==
[2024-01-05 17:56] VITALS: BP 136/60; PULSE 71
[2024-01-05] MEDS: Lidocaine 1% 5 ML VIAL INJECT ONE (18:08)
[2024-01-05] MEDS ORDERED: Bacitracin/Neomycin/Polymyxin B Oint 0.9 GM U/D Packet TOP ONE (18:09)
== END 2024-01-05 18:30 | disposition home or self-care (01) ==
LOC: CC.ED 17:52
DX: S91.011A Laceration without foreign body, right ankle, initial encounter (principal); K21.9 Gastro-esophageal reflux disease without esophagitis; E11.9 Type 2 diabetes mellitus without complications; E03.9 Hypothyroidism, unspecified; E66.9 Obesity, unspecified; Z68.41 Body mass index [BMI] 40.0-44.9, adult; Z86.16 Personal history of COVID-19; Z79.84 Long term (current) use of oral hypoglycemic drugs; Z79.899 Other long term (current) drug therapy; W26.8XXA Contact with other sharp object(s), not elsewhere classified, initial encounter
CPT/HCPCS: 12002; 99282; 99283; J3490

== ENCOUNTER 2025-05-20 19:01 | Emergency (ER) | payer OTHER ==
[2025-05-20] MEDS: Ketorolac 30 MG/ML SDV IVPUSH ONE (19:54)
[2025-05-20 20:18] LABS: BASOPHILS ABSOLUTE AUTO 0.00 10^3/uL (0.00-0.50); BASOPHILS PERCENT AUTO 0.0 % (0-1); EOSINOPHILS ABSOLUTE AUTO 0.05 10^3/uL (0.00-1.50); EOSINOPHILS PERCENT AUTO 0.7 % (0-6); IMMATURE GRAN ABSOLUTE AUTO 0.01 10^3/uL (0.00-0.49); IMMATURE GRAN PERCENT AUTO 0.1 % (0.0-4.9); LYMPHOCYTES ABSOLUTE AUTO 1.77 10^3/uL (0.60-5.00); LYMPHOCYTES PERCENT AUTO 24.8 % (24-44); MONOCYTES ABSOLUTE AUTO 0.72 10^3/uL (0.00-1.50); MONOCYTES PERCENT AUTO 10.1 % (0-10); NEUTROPHILS ABSOLUTE AUTO 4.58 x10^3/uL (1.80-8.00); NEUTROPHILS PERCENT AUTO 64.3 % (41-71); PLATELET COUNT,PLT 144 10^3/uL (150-400); RED BLOOD CELL COUNT 4.69 x10^6/uL (4.50-6.00); WHITE BLOOD CELL COUNT,WBC 7.1 10^3/uL (4.0-11.0)
[2025-05-20 20:29] LABS: ALANINE AMINOTRANSFERASE,ALT 25.0 U/L (12-78); ASPARTATE AMNIOTRANSFERASE,AST 22.0 U/L (15-37); BILIRUBIN TOTAL 0.3 mg/dL (0.0-1.0); BLOOD UREA NITROGEN,BUN 20.0 mg/dL (7-18); CARBON DIOXIDE,CO2 27.0 mmol/L (21-32); CHLORIDE,CL 104.0 mEq/L (98-106); CREATININE 1.2 mg/dL (0.7-1.3); EST CRCL DRUG DOSING (CG) 82.3 mL/min; ESTIMATED GFR 73.0 mL/min (>=60); GLUCOSE RANDOM 112.0 mg/dL (75-99); POTASSIUM,K 4.0 mEq/L (3.5-5.0); PROTEIN TOTAL,TP 7.2 g/dL (6.4-8.2); SODIUM,NA 141.0 mEq/L (136-145)
[2025-05-20] MEDS: Iopamidol 755 Mg/ML 100 ML Bottle IVPUSH ONE (21:10)
[2025-05-20 21:29] VITALS: BP 105/65; PULSE 72
[2025-05-20] MEDS: Take Home: Cephalexin 500 MG Cap, 6 Cap Pack PO ONE (23:05)
[2025-05-20] MEDS: Take Home: Ketorolac 10 MG Tab, 4 Tab Pack PO ONE (23:05)
== END 2025-05-20 23:15 | disposition home or self-care (01) ==
LOC: CC.ED 19:01
DX: A46 Erysipelas (principal); F17.210 Nicotine dependence, cigarettes, uncomplicated; E11.9 Type 2 diabetes mellitus without complications; E03.9 Hypothyroidism, unspecified; Z79.899 Other long term (current) drug therapy; Z79.84 Long term (current) use of oral hypoglycemic drugs; Z86.16 Personal history of COVID-19
CPT/HCPCS: 36415; 70487; 80053; 83605; 83735; 85025; 86140; 87040; 96374; 96375; 99284-25; A9270-GY; J0696; J1885; J7030; Q9967